=== PATIENT | female | born 1990 | race Caucasian/White ===

== ENCOUNTER 2019-03-16 21:12 | Observation (INO) ==
[2019-03-16] MEDS ORDERED: RINGER'S SOLUTION,LACTATED 1,000 ML IV ONE (21:16)
[2019-03-16] MEDS ORDERED: RINGER'S SOLUTION,LACTATED 1,000 ML IV PRN (21:16)
[2019-03-16] MEDS ORDERED: MISOPROSTOL 100 MCG TABLET VG PRN (21:16)
[2019-03-16] MEDS ORDERED: OXYTOCIN/DEXTROSE 5%-WATER 30 UNITS/500 ML BAG IV ONE (21:16)
[2019-03-16] MEDS ORDERED: NALBUPHINE HCL 10 MG/ML AMPUL IV PRN (21:16)
[2019-03-16] MEDS ORDERED: LIDOCAINE HCL 50 ML VIAL PERI PRN (21:16)
[2019-03-16] MEDS ORDERED: DEXTROSE 5%-LACTATED RINGERS 1,000 ML IV PRN (21:16)
[2019-03-16 21:56] VITALS: BP 120/64
[2019-03-16 22:37] LABS: Cocaine Ur Negative (NEGATIVE); Urine Barbiturate Negative (NEGATIVE); Urine Benzodiazepines Negative (NEGATIVE); Urine Opiates Negative (NEGATIVE); Urine PCP Negative (NEGATIVE); Urine THC Negative (NEGATIVE)
[2019-03-17 09:08] LABS: Random Urine Total Protein 15.4 mg/dL (0-12)
--- NOTE | 2019-03-17 09:35 | HP ---
Chief Complaint - Chief Complaint Date of Service: 03/17/19 Time of Service: 09:29 Chief Complaint: Suspected pre-eclampsia History of Present Illness: The patient presented to labor and delivery yesterday due to vaginal pressure. She was then found to have tachycardia with the baseline about 170-180 but not sustained. For that reason she underwent a biophysical profile that was 8/8. She also had two elevated BPs in the mild range. She denies MONZON, visual changes or abdominal pain. She reports ctx that are not painful. She denies vb or lof. Fetus is active. Medical History (Updated 03/11/19 @ 09:31 by Nay Chen MD) Anxiety Onset Date: Unknown Irregular menses Onset Date: ~07/18/16 Tobacco abuse Onset Date: ~11/27/17 Abnormal Pap smear of cervix Onset Date: ~05/17/132010, 07/10/12, LEEP 05/17/13 Enlarged lymph node Onset Date: ~04/09/12 Epidermal inclusion cyst Onset Date: ~06/15/12 right groin H/O wisdom tooth extraction Onset Date: Unknown Pelvic pain Onset Date: ~07/18/16 Surgical History: Surgical History (Updated 05/21/18 @ 10:53 by Parvin Ray RN) History of colposcopy Onset Date: Unknown [facility] Hx of local excision of skin lesion Onset Date: ~06/15/12 epidermal inclusion cyst right groin Family History: Family History (Updated 08/31/18 @ 13:19 by Kim Abbott CMA) Father Cancer prostate Mother Hypothyroidism stents Sister (3) 1 with Spina Bifida Aunt Cancer breast-maternal Mental Retardation-paternal Grandfather Cancer colon-paternal Grandmother CHF (congestive heart failure) maternal Social History: Preferred Language Danish Smoking Status Current every day smoker Psych History No pertinent hx (Last Updated 03/11/19 @ 09:33 by Nay Chen MD) No Social History Section defined Review Of Systems (GEN) - Review of Systems Generalized/Overall Review: Present: No Symptoms Reported Misc: All systems neg except as marked Immunizations: IMMUNIZATION HX Immunizations Up to Date Yes History of Influenza Vaccine Yes Hx Pneumococcal Vaccination No Allergies/Adverse Reactions: Allergies Allergy/AdvReac Type Severity Reaction Status Date / Time No Known Allergies Allergy Verified 03/16/19 21:29 Home Medications: HOME MEDICATIONS vitamin,calcium,fqonwjnf-rhtk-jvrlk acid tablet 1 tab PO DAILY 08/31/18 [Last Taken 02/22/19] Ferrous Sulfate [Iron] 325 mg PO DAILY 02/22/19 [Last Taken 02/22/19] Exam - Exam Vital Signs: Vital Signs - Last Taken Temp 36.5 C 03/16/19 21:54 Pulse 71 03/16/19 21:54 Resp 14 03/16/19 21:54 BP 120/64 03/16/19 21:54 Pulse Ox 100 03/16/19 21:54 Constitutional: Present: Alert, Oriented x3, Cooperative, No distress Respiratory: Present: lungs clear, normal breath sounds Cardiovascular/Chest: Present: regular rate, rhythm, no murmur Abdomen: Present: soft, nontender, nondistended /Rectal: Present: Other - cvx 1 cm. Very tight internal os. Effacement is 60 and station is 0 Extremity: Present: non-tender, no pedal edema, no calf tenderness Skin Exam: Present: normal color, warm/dry, no cyanosis Appearance: Present: appropriate appearance Eye contact: Present: cooperative Thoughts: Present: normal thought pattern Diagnostic Studies: Abnormal Lab Results 03/17/19 Range/Units 09:00 U Random Total Protein 15.4 H (0-12) mg/dL Laboratory Results Ur Random Creatinine 84.8 mg/dL (60-200) 03/17/19 09:00 U Random Total Protein 15.4 mg/dL (0-12) H 03/17/19 09:00 U [place] Prot/Creat Ratio 182 mg/gm (0-199) 03/17/19 09:00 Negative (NEGATIVE) 03/16/19 22:22 Negative (NEGATIVE) 03/16/19 22:22 Ur Phencyclidine Scrn Negative (NEGATIVE) 03/16/19 22:22 Urine Amphetamine Negative (NEGATIVE) 03/16/19 22:22 U Benzodiazepines Scrn Negative (NEGATIVE) 03/16/19 22:22 Negative (NEGATIVE) 03/16/19 22:22 Negative (NEGATIVE) 03/16/19 22:22 Blood Type O Negative 03/16/19 21:30 Antibody Screen Positive 03/16/19 21:30 Assessment/Plan - Narrative Narrative: 29 year old @ 37w 4d initially admitted because of elevated BPs x1 and proteinuria in the pre-eclampsia range. Overnight all of the patient's BPs have been normal so she does not meet the criteria for pre-eclampsia. Given this her UP:CR was repeated via a cath specimen and it was normal and thus the patient does not have pre-eclampsia or proteinuria. Given this and unfavorable cervix the patient is discharged home with labor and pre-eclampsia precautions Follow-up as scheduled tomorrow
--- NOTE | 2019-03-23 11:46 | DS ---
(1) Elevated blood pressure affecting in third trimester, antepartum Problem: Acute Description of Stay: The patient is a 29 year old @ 37weeks 4 days who had two elevated blood pressures in the mild range. She also had proteinuria in the pre-eclampsia range. Overnight the patient's blood pressures were all normal and her cervix was unfavorable. Secondary to this she did not meet the criteria for pre- eclampsia. Given this I rechecked her UP:CR with a straight cath specimen and this was negative for pre-eclampsia confirming that indeed she was not pre- eclamptic. She was discharged home in stable condition with pre-eclampsia precautions. Procedures Performed: see notes below List Procedures: none Results and Findings: Lab Pending Results 03/16/19 21:30: Blood Type O Negative, Antibody Screen Positive, Antibody Identification Anti-D 03/16/19 22:22: Urine Opiates Screen Negative, Barbiturate Screen Negative, Ur Phencyclidine Scrn Negative, Urine Amphetamine Negative, U Benzodiazepines Scrn Negative, Urine Cocaine Screen Negative, Urine Marijuana (THC) Negative 03/17/19 09:00: Ur Random Creatinine 84.8, U Random Total Protein 15.4 H, U [place] Prot/Creat Ratio 182 Discharge Location: Home Disposition: Home self-care Condition: Stable Discharge Activity: Activity as tolerated Discharge Diet: General/regular food Complete Home Medications List: Complete Home Medication List: vitamin,calcium,pnoxsxfr-nekh-bflsl acid tablet 1 tab PO DAILY 08/31/18 Ferrous Sulfate [Iron] 325 mg PO DAILY 02/22/19
== END 2019-03-17 10:15 | disposition home or self-care (01) ==
LOC: INTOOBSV 21:12 → OB 21:12
PROVIDERS: ADMIT Obstetrics & Gynecology; ATTEND Obstetrics & Gynecology
DX: O16.3 Unspecified maternal hypertension, third trimester
CPT/HCPCS: 59025; 80307; 82570; 84155; 84156; 86850; 86870; 96365; 96366; G0378

== ENCOUNTER 2019-03-31 01:45 | Inpatient (IN) ==
[2019-03-31] MEDS ORDERED: OXYTOCIN/DEXTROSE 5%-WATER 30 UNITS/500 ML BAG IV ONE ×2 (02:16→10:06)
[2019-03-31] MEDS ORDERED: RINGER'S SOLUTION,LACTATED 1,000 ML IV ONE (02:16)
[2019-03-31] MEDS ORDERED: ONDANSETRON 4 MG TAB.RAPDIS PO PRN (02:16)
[2019-03-31] MEDS ORDERED: LIDOCAINE HCL 50 ML VIAL PERI PRN (02:16)
[2019-03-31] MEDS ORDERED: NALOXONE HCL 1 MG/1 ML SYRG IV PRN (02:24)
[2019-03-31] MEDS ORDERED: ONDANSETRON HCL/PF 2 MG/ML VIAL IV PRN (02:24)
[2019-03-31] MEDS ORDERED: BUPIVACAINE HCL/0.9 % NACL/PF 250 ML EP PRN (02:24)
[2019-03-31] MEDS ORDERED: fentaNYL CITRATE/PF 50 MCG/ML AMPUL IT SCH (02:30)
[2019-03-31] MEDS ORDERED: LIDOCAINE HCL/EPINEPHRINE 20 ML VIAL IJ ONE (03:09)
--- NOTE | 2019-03-31 03:53 | ANES ---
Post Anesthesia Discharge - Transfer of Care Transfer of Care handoff given to nurse: Yes - Anesthesia Post Op Note Anesthesia Post Op Note: Care transferred to OB RN
--- NOTE | 2019-03-31 03:53 | ANES ---
Post Anesthesia Assessment - Vital Signs Vitals: Last Vital Signs Temp 36.5 C 03/31/19 03:11 Pulse 69 03/31/19 03:11 Resp 20 03/31/19 03:11 BP 130/74 03/31/19 03:11 Pulse Ox 99 03/31/19 03:11 Airway Patency: Normal - Mental Status Level Of Consciousness: Awake - Pain Level Pain Score: 2 - N/V Assessment Nausea/Vomiting Presence: None Dehydration:: No
--- NOTE | 2019-03-31 03:53 | ANES ---
Anesthesia Pre Procedure Eval Vitals/Labs: Last Vital Signs Temp 36.5 C 03/31/19 03:11 Pulse 69 03/31/19 03:11 Resp 20 03/31/19 03:11 BP 130/74 03/31/19 03:11 Pulse Ox 99 03/31/19 03:11 HOME MEDICATIONS vitamin,calcium,aelskito-xhqb-dulpt acid tablet 1 tab PO DAILY 08/31/18 [Last Taken 02/22/19] Ferrous Sulfate [Iron] 325 mg PO DAILY 02/22/19 [Last Taken 02/22/19] Allergies/Adverse Reactions: Allergies Allergy/AdvReac Type Severity Reaction Status Date / Time No Known Allergies Allergy Verified 03/31/19 01:56 - Planned Procedure Planned Procedure: LABOR Medication List Reviewed:: Yes Allergies Verified: Yes Medical History (Updated 03/23/19 @ 11:46 by Nay Chen MD) Anxiety Onset Date: Unknown Irregular menses Onset Date: ~07/18/16 Tobacco abuse Onset Date: ~11/27/17 Abnormal Pap smear of cervix Onset Date: ~05/17/132010, 07/10/12, LEEP 05/17/13 Enlarged lymph node Onset Date: ~04/09/12 Epidermal inclusion cyst Onset Date: ~06/15/12 right groin H/O wisdom tooth extraction Onset Date: Unknown Pelvic pain Onset Date: ~07/18/16 Surgical History (Updated 03/17/19 @ 09:35 by Nay Chen MD) History of colposcopy Onset Date: Unknown [facility] Hx of local excision of skin lesion Onset Date: ~06/15/12 epidermal inclusion cyst right groin Family History (Updated 08/31/18 @ 13:19 by Kim Abbott CMA) Father Cancer prostate Mother Hypothyroidism stents Sister (3) 1 with Spina Bifida Aunt Cancer breast-maternal Mental Retardation-paternal Grandfather Cancer colon-paternal Grandmother CHF (congestive heart failure) maternal - Family Anesthesia History Family History:: no untoward family reactions to anesthesia - Airway/Neck/Teeth Within Normal Limits:: Yes Neck Exam: full range of motion Mallampatti Score: 1 Thyromental (T-M) distance: > 6 cm Mandibulo Hyoid distance: > 3 cm - Respiratory Smoking Status: Current every day smoker Discussed smoking cessation including day of surgery: Yes Sleep Apnea currently treated: No Sleep Apnea by current assessment: No - Cardiovascular Tolerate Activity: Good - Anesthesia Assessment and Plan ASA Class: PS, II, E Anesthesia Type Plan: Epidural Planned difficult intubation/equipment available: No
--- NOTE | 2019-03-31 03:56 | ANES ---
Anesthesia Procedure Note Procedure Note: ANESTHESIA PROCEDURE NOTE Date of Procedure: 03/31/2019 Time of procedure: . Performed by: Juvenal Joiner CRNA Director Trade: None. Preprocedure diagnosis: Active labor. Post procedure diagnosis: Same. Procedure: Insertion of labor epidural. Indications: The patient is a 29-year-old multigravida female in active labor requesting labor epidural for pain management. Findings: See below. Details of the procedure: The patient was placed in a sitting position. Back was prepped with DuraPrep. Patient was then draped in a sterile fashion. Lidocaine 1% was infiltrated to the skin and subcutaneous tissues at the level of the L3 4 interspace. The epidural space was identified using a 18-gauge Tuohy needle with jluh-oc-nivobewuiv technique. 20 mcg fentanyl was given intrathecally using a 27 ga. spinal needle. Epidural catheter was inserted without difficulty. Negative test dose was elicited using 3mL of 2% preservative-free lidocaine plus epinephrine 1 200,000. The epidural catheter was then taped and secured in place. EBL: Minimal. Fluids: N/A. Specimen: N/A. Post procedure condition: The patient tolerated the procedure well. No complications were noted. Thank you for this consultation. Mueller CRNA
[2019-03-31] MEDS: RINGER'S SOLUTION,LACTATED 1,000 ML IV PRN ×2 (04:41→07:01)
[2019-03-31 06:03] LABS: Cocaine Ur Negative (NEGATIVE); Urine Barbiturate Negative (NEGATIVE); Urine Benzodiazepines Negative (NEGATIVE); Urine Opiates Negative (NEGATIVE); Urine PCP Negative (NEGATIVE); Urine THC Negative (NEGATIVE)
[2019-03-31] MEDS ORDERED: TERBUTALINE SULFATE 1 MG/ML VIAL SC ONE (06:05)
[2019-03-31] MEDS ORDERED: TERBUTALINE SULFATE 1 MG/ML VIAL ONE (06:10)
--- NOTE | 2019-03-31 06:27 | HP ---
Chief Complaint - Chief Complaint Date of Service: 03/31/19 Time of Service: 06:21 Chief Complaint: labor History of Present Illness: The patient presented in labor. She reports regular contractions. She denies vaginal bleeding. She had SROM. Fetus is active. Medical History (Updated 03/23/19 @ 11:46 by Nay Chen MD) Anxiety Onset Date: Unknown Irregular menses Onset Date: ~07/18/16 Tobacco abuse Onset Date: ~11/27/17 Abnormal Pap smear of cervix Onset Date: ~05/17/132010, 07/10/12, LEEP 05/17/13 Enlarged lymph node Onset Date: ~04/09/12 Epidermal inclusion cyst Onset Date: ~06/15/12 right groin H/O wisdom tooth extraction Onset Date: Unknown Pelvic pain Onset Date: ~07/18/16 Surgical History: Surgical History (Updated 03/17/19 @ 09:35 by Nay Chen MD) History of colposcopy Onset Date: Unknown [facility] Hx of local excision of skin lesion Onset Date: ~06/15/12 epidermal inclusion cyst right groin Family History: Family History (Updated 08/31/18 @ 13:19 by Kim Abbott CMA) Father Cancer prostate Mother Hypothyroidism stents Sister (3) 1 with Spina Bifida Aunt Cancer breast-maternal Mental Retardation-paternal Grandfather Cancer colon-paternal Grandmother CHF (congestive heart failure) maternal Social History: Preferred Language Serbian Smoking Status Current every day smoker Psych History No pertinent hx (Last Updated 03/30/19 @ 15:51 by Nay Chen MD) No Social History Section defined Review Of Systems (GEN) - Review of Systems Generalized/Overall Review: Present: No Symptoms Reported Misc: All systems neg except as marked Immunizations: IMMUNIZATION HX Immunizations Up to Date Yes History of Influenza Vaccine Yes Hx Pneumococcal Vaccination No Allergies/Adverse Reactions: Allergies Allergy/AdvReac Type Severity Reaction Status Date / Time No Known Allergies Allergy Verified 03/31/19 01:56 Home Medications: HOME MEDICATIONS vitamin,calcium,biklgory-ouzc-tznzs acid tablet 1 tab PO DAILY 08/31/18 [Last Taken 02/22/19] Ferrous Sulfate [Iron] 325 mg PO DAILY 02/22/19 [Last Taken 02/22/19] Exam - Exam Vital Signs: Vital Signs - Last Taken Temp 36.5 C 03/31/19 03:11 Pulse 69 03/31/19 03:11 Resp 20 03/31/19 03:11 BP 130/74 03/31/19 03:11 Pulse Ox 99 03/31/19 03:11 Constitutional: Present: Alert, Oriented x3, Cooperative, No distress Respiratory: Present: lungs clear, normal breath sounds Cardiovascular/Chest: Present: regular rate, rhythm, no murmur Abdomen: Present: soft, nontender, nondistended Extremity: Present: non-tender, no calf tenderness Skin Exam: Present: normal color, warm/dry, no cyanosis Appearance: Present: appropriate appearance Eye contact: Present: cooperative Thoughts: Present: normal thought pattern Diagnostic Studies: Laboratory Results Negative (NEGATIVE) 03/31/19 05:50 Negative (NEGATIVE) 03/31/19 05:50 Ur Phencyclidine Scrn Negative (NEGATIVE) 03/31/19 05:50 Urine Amphetamine Negative (NEGATIVE) 03/31/19 05:50 U Benzodiazepines Scrn Negative (NEGATIVE) 03/31/19 05:50 Negative (NEGATIVE) 03/31/19 05:50 Negative (NEGATIVE) 03/31/19 05:50 Assessment/Plan - Narrative Narrative: 29 year old at 39w 5d who presented in labor On pitocin for augmentation of labor The patient had a 6 minute deceleration down to a estella of 60. Pitocin is currently off and a dose of terbutaline was given. FHT has recovered The patient had spontaneous rupture of membranes at 0606. Moderate meconium was noted Restart pitocin when able
--- NOTE | 2019-03-31 06:42 | PN ---
Progess Note - Interim Date: 03/31/19 Time: 06:41 Narrative: 03/31/19 06:41 Re-examined the patient because she has a tight band on the right side of her cervix from a prior LEEP. Her cervix is now 6 cm. I stretched her cervix and used a long packing forcep to get rid of the band which is almost completely gone now.
--- NOTE | 2019-03-31 08:31 | PN ---
Progess Note - Interim Date: 03/31/19 Time: 08:30 Narrative: 03/31/19 08:30 Patient is comfortable with epidural 7/100/+1 FHT cat 2
[2019-03-31] MEDS ORDERED: DEXTROSE 5%-LACTATED RINGERS 1,000 ML IV PRN (08:48)
[2019-03-31] MEDS ORDERED: SENNOSIDES 8.6 MG TABLET PO PRN (10:06)
[2019-03-31] MEDS ORDERED: GLYCERIN/WITCH HAZEL LEAF 40 APPL BOX TP PRN (10:06)
[2019-03-31] MEDS ORDERED: diphenhydrAMINE HCL 25 MG CAPSULE PO PRN (10:06)
[2019-03-31] MEDS ORDERED: HYDROCORTISONE 30 APPL TUBE TP PRN (10:06)
[2019-03-31] MEDS ORDERED: BISACODYL 10 MG SUPP.RECT RC PRN (10:06)
[2019-03-31] MEDS ORDERED: BENZOCAINE/MENTHOL 81 SPRAY CAN TP PRN (10:06)
[2019-03-31] MEDS ORDERED: oxyCODONE HCL/ACETAMINOPHEN 1 TAB TABLET PO PRN (10:06)
--- NOTE | 2019-03-31 10:08 | OR ---
Operative Report - Dictated Report Narrative: Date of delivery: 03/31/2019 Time of delivery: 10:58 Gender: female weight: 2849 grams APGARS: 8/9 Procedure: Description of the procedure: The patient is a 29 year old at 39w 5d who presented in labor. Labor was augmented with pitocin. The patient ruptured spontaneously and moderate meconium was noted. She progressed to complete dilation. She delivered a viable female in the CULLEN presentation. The cord was clamped and cut and the was handed off to the attending pediatric staff. A right labial laceration was noted and it was not repaired since it was hemostatic. The placenta was delivered by expression and appeared intact. EBL: 50 mL Lacerations: right labial Complications: none Specimens: none
[2019-03-31] MEDS: IBUPROFEN 800 MG TABLET PO PRN ×2 (12:27→20:48)
[2019-03-31] MEDS ORDERED: RHO(D) IMMUNE GLOBULIN 1,500 UNIT SYRINGE IM ONE (17:48)
[2019-03-31] MEDS: DOCUSATE SODIUM 100 MG CAPSULE PO SCH (20:48)
[2019-04-01] MEDS: IBUPROFEN 800 MG TABLET PO PRN ×3 (06:51→21:15)
[2019-04-01] MEDS: DOCUSATE SODIUM 100 MG CAPSULE PO SCH ×3 (06:52→21:15)
--- NOTE | 2019-04-01 12:00 | PN ---
Subjective - Date and Time Seen Date: 04/01/19 Time: 11:59 Subjective Narrative: Pt without complaints Objective Objective Narrative: See vital signs - Review of Systems Generalized/Overall Review: Reports: No Symptoms Reported Misc: All systems neg except as marked - Vitals Vitals: Last Vital Signs Temp 36.6 C 04/01/19 06:30 Pulse 54 L 04/01/19 06:30 Resp 16 04/01/19 06:30 BP 127/73 04/01/19 06:30 Pulse Ox 98 04/01/19 06:30 - Exam Constitutional: Present: Alert, Oriented x3, Cooperative, No distress Abdomen: Present: soft, nontender, nondistended Extremity: Present: non-tender, normal inspection, no calf tenderness Skin Exam: Present: normal color, warm/dry, no cyanosis Appearance: Present: appropriate appearance Eye contact: Present: cooperative Thoughts: Present: normal thought pattern Cauti Physician Documentation - Urinary Catheter Management Urethral (Garibay) Urethral Indwelling: No Date of Insertion: 03/31/19 Time of Insertion: 04:00 Date of Removal: 03/31/19 Time of Removal: 09:52 Assessment/Plan Plan Narrative: PPD 1 s/p Doing well Discharge tomorrow
[2019-04-01] MEDS: oxyCODONE HCL/ACETAMINOPHEN 1 TAB TABLET PO PRN ×2 (14:52→21:15)
[2019-04-02] MEDS: oxyCODONE HCL/ACETAMINOPHEN 1 TAB TABLET PO PRN (03:54)
[2019-04-02] MEDS: IBUPROFEN 800 MG TABLET PO PRN (03:54)
[2019-04-02 07:58] VITALS: BP 120/74
--- NOTE | 2019-04-02 08:06 | PN ---
Subjective - Date and Time Seen Date: 04/02/19 Time: 08:05 Subjective Narrative: Pt without complaints Objective Objective Narrative: See vital signs - Review of Systems Generalized/Overall Review: Reports: No Symptoms Reported Misc: All systems neg except as marked - Vitals Vitals: Last Vital Signs Temp 36.2 C 04/02/19 06:45 Pulse 74 04/02/19 06:45 Resp 14 04/02/19 06:45 BP 120/74 04/02/19 06:45 Pulse Ox 97 04/02/19 06:45 - Exam Constitutional: Present: Alert, Oriented x3, Cooperative, No distress Abdomen: Present: soft, nontender, nondistended Extremity: Present: non-tender, no calf tenderness Skin Exam: Present: normal color, warm/dry, no cyanosis Appearance: Present: appropriate appearance Eye contact: Present: cooperative Thoughts: Present: normal thought pattern Cauti Physician Documentation - Urinary Catheter Management Urethral (Garibay) Urethral Indwelling: No Date of Insertion: 03/31/19 Time of Insertion: 04:00 Date of Removal: 03/31/19 Time of Removal: 09:52 Assessment/Plan Plan Narrative: PPD 2 s/p Doing well Discharge home
[2019-04-02] MEDS: DOCUSATE SODIUM 100 MG CAPSULE PO SCH (08:39)
== END 2019-04-02 10:45 | disposition home or self-care (01) | DRG 806 ==
LOC: OBCLINIC 01:45 → OB 02:15 → MS 04-01 12:38
PROVIDERS: ADMIT Obstetrics & Gynecology; ATTEND Obstetrics & Gynecology
CPT/HCPCS: 59025; 80307; 85460; J2790